=== PATIENT | male | born 1945 | race Caucasian/White ===

== ENCOUNTER → 2017-12-24 | Outpatient (CLI) | payer OTHER, MEDICARE ==
--- NOTE | 2017-12-24 18:44 | EKG REPORT ---
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
== END ==
LOC: OD 14:19
PROVIDERS: ATTEND Nurse Practitioner Family
DX: I10 Essential (primary) hypertension (principal)
CPT/HCPCS: 93005; 93010

== ENCOUNTER → 2018-01-07 | Outpatient (CLI) | payer MEDICARE ==
--- NOTE | 2018-01-07 10:42 | RADIOLOGY REPORT (SQ) ---
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 TECHNIQUE: Static and dynamic grayscale images acquired of the aorta and stored on PACs. Selected co asaf Doppler and spectral images recorded. LIMITATIONS: None. FINDINGS: AORTIC CALIBER MAXIMAL PROXIMAL: 2.1 cm. MID: 1.8 cm. DISTAL: 1.5 cm. ILIAC DIAMETER RIGHT: 1.8 cm. LEFT: 1.2 cm. OTHER: No other significant finding. IMPRESSION: NO ABDOMINAL AORTIC ANEURYSM. COMMENT: Aorta screening examinations categories: Negative - less than 3 cm. TECHNICAL DOCUMENTATION: JOB ID: [id number] [employer]- All Rights Reserved Reading location - IP/workstation name: [email or web address]
== END ==
LOC: RAD 08:25
PROVIDERS: ATTEND Nurse Practitioner Family
DX: Z13.6 Encounter for screening for cardiovascular disorders (principal); F17.210 Nicotine dependence, cigarettes, uncomplicated
CPT/HCPCS: 76706

== ENCOUNTER 2018-01-10 08:30 | Day surgery (SDC) | payer MEDICARE ==
[~2018-01-10 08:30] MED LIST: DIPHENHYDRAMINE HCL 50 MG/ML VIAL ONE; EPINEPHRINE INJ 1 MG/10 ML DISP.SYRIN ONE; FLUMAZENIL INJ 0.5 MG/5 ML VIAL ONE; GLUCAGON,HUMAN RECOMB 1 MG INJ ONE; NALOXONE HCL INJ/PF 0.4 MG/1 ML SDV ONE; ONDANSETRON HCL INJ/PF 4 MG/2 ML SDV ONE
[2018-01-10] MEDS: MIDAZOLAM 2 MG/2 ML INJ ONE ×3 (09:25→09:37)
[2018-01-10] MEDS: FENTANYL CITRATE INJ/PF 100 MCG/2 ML AMPUL ONE ×3 (09:27→09:33)
--- NOTE | 2018-01-10 09:40 | Operative Report ---
Operative Report DATE OF SURGERY: 01/10/18 Operative Report: The risks benefits and alternatives of the procedure explained to the patient in detail and informed consent is obtained.A GIF Olympus video scope was inserted into the patient's mouth and hypopharynx, the esophagus is identified intubated and insufflated ,the scope was then advanced through the esophagus stomach and duodenum, retroflexion maneuver is done, the esophagus stomach and first and second portions of the duodenum examined PREOPERATIVE DIAGNOSIS: Dysphagia POSTOPERATIVE DIAGNOSIS: Schatzki's ring status post dilatation. Hiatal hernia. Gastritis status post biopsy rule out Helicobacter pylori OPERATION: EGD with biopsy. EGD with dilatation SURGEON: AIDA RODRIGUEZ ANESTHESIA: Moderate Sedation - 4 mg of Versed, 75 mcg of fentanyl. Conscious sedation monitoring time 30 minutes. TISSUE REMOVED OR ALTERED: As noted above. COMPLICATIONS: None. ESTIMATED BLOOD LOSS: None. INTRAOPERATIVE FINDINGS: As noted above. PROCEDURE: Patient tolerated the procedure well. No immediate postprocedure complications are noted. Patient discharged in good condition. Discharge date 01/10/2018. Discharge diet: Regular. Discharge activity: Regular. 2-3 week follow-up to discuss findings. Patient is instructed call the office or proceed to the emergency room should there be any further problems or questions. We will await pathology.
[2018-01-10 10:45] VITALS: BP 124/66
== END 2018-01-10 10:55 | disposition home or self-care (01) ==
LOC: END 08:30
PROVIDERS: ATTEND Internal Medicine Gastroenterology
PROC: 0D758ZZ Dilation of Esophagus, Via Natural or Artificial Opening Endoscopic (ICD-10-PCS; 2018-01-10)
PROC: 0DB68ZX Excision of Stomach, Via Natural or Artificial Opening Endoscopic, Diagnostic (ICD-10-PCS; principal; 2018-01-10 09:30)
DX: K29.50 Unspecified chronic gastritis without bleeding (principal); K44.9 Diaphragmatic hernia without obstruction or gangrene; K22.2 Esophageal obstruction; I10 Essential (primary) hypertension; Z79.899 Other long term (current) drug therapy
CPT/HCPCS: 43239; 43249; 88342 ×2; 88305 ×2; J2250; J3010; J0171; J1200; J1610; J2310; J2405; J3490

== ENCOUNTER 2019-07-02 10:09 | Emergency (ER) | payer MEDICARE ==
--- NOTE | 2019-07-02 11:10 | RADIOLOGY REPORT (SQ) ---
EXAM DESCRIPTION: CT HEAD WITHOUT COMPLETED DATE/TIME: 07/02/2019 10:51 am REASON FOR STUDY: bed 9 left sided weakness COMPARISON: None. TECHNIQUE: Axial images acquired through the brain without intravenous contrast. Images reviewed wi th bone, brain and subdural windows. Additional sagittal and coronal reconstructions were generated. Images stored on PACS. All CT scanners at this facility use dose modulation, iterative reconstruction, and/or weight based d osing when appropriate to reduce radiation dose to as low as reasonably achievable (ALARA). [facility]: Dose Right [facility]: CareDose [facility]: Dose Right [facility]: Teradose 4D [facility]: Smart Technologies RADIATION DOSE: CT Rad equipment meets quality standard of care and radiation dose reduction techniq ues were employed. CTDIvol: 53.2 mGy. DLP: 1044 mGy-cm. mGy. LIMITATIONS: None. FINDINGS: VENTRICLES: Normal size and contour. CEREBRUM: Along the right frontal perisylvian region, a 4.6 cm (craniocaudad) by 3.5 cm (AP) by 3 cm (transverse) mass is present with surrounding vasogenic edema. There is effacement of the right sylv angelique fissure and adjacent frontal sulci. Minimal 2 to 3 mm right to left subfalcine shift. No superi mposed acute hemorrhage. Remainder of the brain parenchyma is otherwise unremarkable. CEREBELLUM: No masses. No hemorrhage. No alteration of density. No evidence for acute infarction. EXTRAAXIAL SPACES: No fluid collections. No masses. ORBITS AND GLOBE: No intra- or extraconal masses. Normal contour of globe without masses. CALVARIUM: No fracture. PARANASAL SINUSES: No fluid or mucosal thickening. SOFT TISSUES: No mass or hematoma. OTHER: No other significant finding. IMPRESSION: 4.6 x 3.5 x 3 cm mass in the right frontal brain parenchyma with surrounding vasogenic e estela and mild local mass effect. Minimal if any subfalcine shift. Finding is worrisome for either p rimary brain tumor or metastatic disease. Results called to Dr. Reyes, 1100 hours 07/02/2019 as a critical result EVIDENCE OF ACUTE STROKE: NO. COMMENT: Pertinent findings on the imaging study reported as a CRITICAL RESULT to Dr Reyes at11:01 o n 07/02/2019. Category of Critical Result: Right frontal brain tumor with mild local mass effect Quality ID # [id number]: Final reports with documentation of one or more dose reduction techniques (e.g., Au tomated exposure control, adjustment of the mA and/or kV according to patient size, use of iterative reconstruction technique) TECHNICAL DOCUMENTATION: JOB ID: [id number] [employer]- All Rights Reserved Reading location - IP/workstation name: [email or web address]-
--- NOTE | 2019-07-02 11:12 | ER Document Report ---
ED Medical Screen (RME) - General Chief Complaint: Weakness Stated Complaint: LEFT SIDE BODY WEAKNESS Time Seen by Provider: 07/02/19 11:03 Primary Care Provider: SAIDA VELÁZQUEZ NP [Primary Care Provider] - Follow up as needed Information source: Patient, Relative Notes: Patient presents with 2 to 3-week history of generalized weakness. Patient with a left-sided facial droop this morning and dragging the left leg at home causing disruption of the rugs at home on the floor. Patient states that people commented last night at latter-day that he seemed to have drooping of the left shoulder. hx: Hypertension, GERD I have greeted and performed a rapid initial assessment of this patient. A comprehensive ED assessment and evaluation of the patient, analysis of test results and completion of the medical decision making process will be conducted by additional ED providers. TRAVEL OUTSIDE OF THE [place] IN LAST 30 DAYS: No - Related Data Allergies/Adverse Reactions: No Known Allergies Allergy (Verified 01/10/18 09:01) Past Medical History - Past Medical History Cardiac Medical History: Reports: Hx Hypertension Denies: Hx Coronary Artery Disease, Hx Heart Attack Pulmonary Medical History: Reports: Hx COPD Denies: Hx Asthma, Hx Bronchitis, Hx Pneumonia Neurological Medical History: Denies: Hx Cerebrovascular Accident, Hx Seizures Musculoskeltal Medical History: Denies Hx Arthritis - Immunizations Immunizations up to date: No Hx Diphtheria, Pertussis, Tetanus Vaccination: Yes - out of date Influenza Administration Date for 08/2017 - 01/2018 Season: 12/05/17 Physical Exam - Vital signs Vitals: Temp Pulse Resp BP Pulse Ox 98.2 F 110 H 16 125/70 100 07/02/19 10:16 07/02/19 10:07/02/19 10:07/02/19 10:07/02/19 10:16 - General Notes: Left-sided facial droop - Neurological [place] Coma Scale Eye Opening: Spontaneous [place] Coma Scale Verbal: Oriented Debbie Coma Scale Motor: Obeys Commands Debbie Coma Scale Total: 15 Cranial nerves: Facial palsy Course - Vital Signs Vital signs: Temp Pulse Resp BP Pulse Ox 98.2 F 110 H 16 125/70 100 07/02/19 10:16 07/02/19 10:16 07/02/19 10:16 07/02/19 10:07/02/19 10:16 - Laboratory Laboratory results interpreted by me: 07/02/19 10:59 POC Glucose 133 H Doctor's Discharge - Discharge Referrals: SAIDA VELÁZQUEZ, TRANSMISSION INSPECTOR [Primary Care Provider] - Follow up as needed
[2019-07-02 11:18] LABS: INTERNATIONAL RATION (INR) 1.05
[2019-07-02 11:19] LABS: PARTIAL THROMBOPLASTIN TIME 37.6 SEC (23.5-35.8)
[2019-07-02 11:23] LABS: PROTHROMBIN TIME 13.7 SEC (11.4-15.4)
[2019-07-02 11:30] LABS: ABSOLUTE BASOPHILS # (AUTO) 0.1 10^3/uL (0.0-0.2); ABSOLUTE EOSINOPHILS # (AUTO) 0.1 10^3/uL (0.0-0.6); ABSOLUTE MONOCYTES (AUTO) 0.6 10^3/uL (0.1-1.4); ABSOLUTE NEUT (AUTO) 5.9 10^3/uL (1.7-8.2); BASOPHILS % (AUTO) 0.9 % (0-2); EOSINOPHILS % (AUTO) 1.1 % (0-6); HEMATOCRIT 39.6 % (37.9-51.0); HEMOGLOBIN 13.4 g/dL (13.5-17.0); LYMPHOCYTES % (AUTO) 13.5 % (13-45); MEAN CORPUSCULAR HEMOGLOBIN 30.3 pg (27.0-33.4); MEAN CORPUSCULAR HGB CONC 33.7 g/dL (32.0-36.0); MEAN CORPUSCULAR VOLUME 90 fl (80-97); MONOCYTES % (AUTO) 7.8 % (3-13); PLATELET COUNT 359 10^3/uL (150-450); RED BLOOD COUNT 4.41 10^6/uL (4.35-5.55); RED CELL DISTRIBUTION WIDTH 14.3 % (11.5-14.0); SEGMENTED NEUTROPHILS % (AUTO) 76.7 % (42-78); TOTAL CELLS COUNTED % (AUTO) 100 %; WHITE BLOOD COUNT 7.7 10^3/uL (4.0-10.5)
[2019-07-02 11:50] LABS: ALBUMIN 4.2 g/dL (3.5-5.0); ALKALINE PHOSPHATASE 109 U/L (38-126); ANION GAP 8 (5-19); ASPARTATE AMINO TRANSFERASE 29 U/L (17-59); BILIRUBIN,DIRECT 0.3 mg/dL (0.0-0.4); BILIRUBIN,TOTAL 0.4 mg/dL (0.2-1.3); BLOOD UREA NITROGEN 32 mg/dL (7-20); CALCIUM 9.6 mg/dL (8.4-10.2); CARBON DIOXIDE 28 mmol/L (22-30); CHLORIDE 99 mmol/L (98-107); CREATINE KINASE 72 U/L (55-170); GLUCOSE 145 mg/dL (75-110); POTASSIUM 4.4 mmol/L (3.6-5.0); TOTAL PROTEIN 8.6 g/dL (6.3-8.2)
[2019-07-02 11:51] LABS: CREATINE KINASE MB 2.64 ng/mL (<4.55)
[2019-07-02 11:52] LABS: TROPONIN I < 0.012 ng/mL
[2019-07-02] MEDS ORDERED: DEXAMETHASONE SOD PHOS INJ 10 MG/1 ML VIAL IV ONE (11:56)
--- NOTE | 2019-07-02 12:03 | ER Document Report ---
ED General - General Chief Complaint: Weakness Stated Complaint: LEFT SIDE BODY WEAKNESS Time Seen by Provider: 07/02/19 11:03 Primary Care Provider: SAIDA VELÁZQUEZ NP [Primary Care Provider] - Follow up as needed TRAVEL OUTSIDE OF THE [place] IN LAST 30 DAYS: No - HPI Notes: Progressive left-sided body weakness with left facial droop that started this morning prompting patient to come to the emergency department. 20 pounds of unintentional weight loss over the last 2 months patient is daily smoker - Related Data Allergies/Adverse Reactions: No Known Allergies Allergy (Verified 01/10/18 09:01) Past Medical History - General Information source: Patient, Relative - Social History Smoking Status: Current Every Day Smoker Frequency of alcohol use: None Drug Abuse: None Family History: Reviewed & Not Pertinent Patient has suicidal ideation: No Patient has homicidal ideation: No - Past Medical History Cardiac Medical History: Reports: Hx Hypertension Denies: Hx Coronary Artery Disease, Hx Heart Attack Pulmonary Medical History: Reports: Hx COPD Denies: Hx Asthma, Hx Bronchitis, Hx Pneumonia Neurological Medical History: Denies: Hx Cerebrovascular Accident, Hx Seizures Musculoskeletal Medical History: Denies Hx Arthritis - Immunizations Immunizations up to date: No Hx Diphtheria, Pertussis, Tetanus Vaccination: Yes - out of date Hx Pneumococcal Vaccination: 12/05/17 Review of Systems - Review of Systems Constitutional: No symptoms reported EENT: No symptoms reported Cardiovascular: No symptoms reported Respiratory: No symptoms reported Gastrointestinal: No symptoms reported Genitourinary: No symptoms reported Male Genitourinary: No symptoms reported Musculoskeletal: No symptoms reported Skin: No symptoms reported Hematologic/Lymphatic: No symptoms reported Neurological/Psychological: See HPI Physical Exam - Vital signs Vitals: Temp Pulse Resp BP Pulse Ox 98.2 F 110 H 16 125/70 100 07/02/19 10:16 07/02/19 10:16 07/02/19 10:16 07/02/19 10:16 07/02/19 10:16 - General General appearance: Appears well, Alert - HEENT Head: Normocephalic, Atraumatic Eyes: Normal Cornea: Normal Pupils: PERRL - Respiratory Respiratory status: No respiratory distress Chest status: Nontender Breath sounds: Normal - Cardiovascular Rhythm: Regular Heart sounds: Normal auscultation Murmur: No - Extremities General upper extremity: Normal inspection General lower extremity: Normal inspection - Neurological Notes: Mild left-sided facial droop with weakness on strength exam on left upper and lower extremity compared to right Course - Re-evaluation Re-evalutation: 07/02/19 12:00 Patient appears to have Pancoast tumor with secondary metastasis to the brain. Patient alert oriented overall well-appearing. I did discuss case with Dr. Johnson, he advised to place patient on Decadron as well as Keppra and he will see the patient in his office today. 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 Johnson today at 1pm. Prescriptions: Dexamethasone [Decadron 4 Mg Tablet] 4 mg PO ASDIR PRN #20 tablet PRN Reason: Levetiracetam [Keppra 500 mg Tablet] 500 mg PO Q12 #60 tablet Referrals: RICHAR JOHNSON MD [ACTIVE STAFF] - Follow up as needed
--- NOTE | 2019-07-02 12:04 | RADIOLOGY REPORT (SQ) ---
EXAM DESCRIPTION: CHEST SINGLE VIEW COMPLETED DATE/TIME: 07/02/2019 11:30 am REASON FOR STUDY: L side facial droop COMPARISON: CT brain 07/02/2019 Two-view chest 12/28/2009 EXAM PARAMETERS: NUMBER OF VIEWS: One view. TECHNIQUE: Single frontal radiographic view of the chest acquired. RADIATION DOSE: NA LIMITATIONS: None. FINDINGS: LUNGS AND PLEURA: A right upper lobe mass is present, about 3.5 cm in size. There is righ t paratracheal fullness from adenopathy. This finding is worrisome for primary lung cancer. Lungs are otherwise free of acute infiltrates. Minimal bandlike scarring in the left mid lung, with chronic blunting left lateral costophrenic and posterior costophrenic sulci unchanged from 12/28/2009. MEDIASTINUM AND HILAR STRUCTURES: Fullness right paratracheal region from adenopathy HEART AND VASCULAR STRUCTURES: Heart normal in size. Normal vasculature. BONES: No acute findings. HARDWARE: None in the chest. OTHER: No other significant finding. IMPRESSION: Right upper lobe 3.5 cm mass with right paratracheal adenopathy worrisome for primary jaciel ng cancer. TECHNICAL DOCUMENTATION: JOB ID: [id number] [employer]- All Rights Reserved Reading location - IP/workstation name: [email or web address]
[2019-07-02 12:36] VITALS: BP 125/81
--- NOTE | 2019-07-02 12:41 | EKG REPORT ---
SEVERITY:- ABNORMAL ECG - SINUS TACHYCARDIA LEFT ANTERIOR FASCICULAR BLOCK LOW VOLTAGE IN FRONTAL LEADS BORDERLINE R WAVE PROGRESSION, ANTERIOR LEADS : Confirmed by: Alfonso Wharton MD 02-Jul-2019 12:41:29
== END 2019-07-02 12:54 | disposition home or self-care (01) ==
LOC: ER 10:09
DX: C34.11 Malignant neoplasm of upper lobe, right bronchus or lung (principal); C79.31 Secondary malignant neoplasm of brain; R63.4 Abnormal weight loss; R53.1 Weakness; R29.810 Facial weakness; F17.200 Nicotine dependence, unspecified, uncomplicated; I10 Essential (primary) hypertension
CPT/HCPCS: 36415; 70450; 71045; 80053; 82550; 82553; 82962; 84484; 85025; 85610; 85730; 93005; 93010; 99285

== ENCOUNTER → 2019-07-08 | Outpatient (CLI) | payer MEDICARE, OTHER ==
--- NOTE | 2019-07-08 14:20 | RADIOLOGY REPORT (SQ) ---
EXAM DESCRIPTION: CT CHEST WITH; CT ABD/PELVIS WITH IV ORAL COMPLETED DATE/TIME: 07/08/2019 1:55 pm REASON FOR STUDY: LUNG CA (C34.11), SECONDARY BRAIN CA (C79.31) C34.11 MALIGNANT NEOPLASM OF UPPER LOBE, RIGHT BRONCHUS OR L CONTRAST TYPE AND DOSE: contrast/concentration: Isovue 350.00 mg/ml; Total Contrast Delivered: 65.0 ml; Total Saline Delivered: 65.0 ml RENAL FUNCTION: BUN 32, creatinine 1.32 COMPARISON: None. TECHNIQUE: CT scan of the chest performed using helical scanning technique with dynamic intravenous contrast injection. Images reviewed with lung, soft tissue and bone windows. Reconstructed coronal a nd sagittal MPR images reviewed. All images stored on PACS. All CT scanners at this facility use dose modulation, iterative reconstruction, and/or weight based d osing when appropriate to reduce radiation dose to as low as reasonably achievable (ALARA). [facility]: Dose Right [facility]: CareDose [facility]: Dose Right [facility]: Teradose 4D [facility]: Smart [employer] RADIATION DOSE: CT Rad equipment meets quality standard of care and radiation dose reduction techniq ues were employed. CTDIvol: 4.5 - 4.6 mGy. DLP: 692 mGy-cm. . LIMITATIONS: None. FINDINGS: AXILLAE: No adenopathy. CHEST WALL: Right apical mass which is probably invaded the right posterosuperior chest wall. LUNGS: 7.5 x 4.3 x 6.7 cm mass in the right lung apex. Bilateral emphysematous changes. PLEURA: Calcified pleural plaque consistent with prior asbestosis exposure. THYROID: No masses or significant asymmetry. HILAR AND MEDIASTINAL STRUCTURES: Pathologic mediastinal and right hilar adenopathy. Pretracheal con glomeration of nodes measures 4.4 cm in size. There is a 2.5 cm right hilar node. AORTA AND GREAT VESSELS: Atherosclerotic change. No dissection. PULMONARY ARTERIES: No identified pulmonary emboli. Study not optimized for the pulmonary arteries. HEART: No pericardial effusion. HARDWARE AND LIFELINES: None. BONES: No significant finding. OTHER: No other significant finding. IMPRESSION: Right apical mass with probable chest wall invasion. Fairly extensive mediastinal and r ight hilar adenopathy consistent with metastatic disease. Calcified pleural plaque. Bilateral emphy sematous changes. COMPARISON: None. RADIATION DOSE: CT Rad equipment meets quality standard of care and radiation dose reduction [employer] ues were employed. CTDIvol: 4.5 - 4.6 mGy. DLP: 692 mGy-cm. mGy. TECHNIQUE: CT scan of the abdomen and pelvis performed with intravenous and oral contrast using odalis la nena scanning technique with dynamic intravenous contrast injection. Images reviewed with lung, soft tissue and bone windows. Reconstructed coronal and sagittal MPR images reviewed. Delayed images for evaluation of the urinary system also acquired and evaluated. All images stored on PACS. All CT scanners at this facility use dose modulation, iterative reconstruction, and/or weight based d osing when appropriate to reduce radiation dose to as low as reasonably achievable (ALARA). [facility]: Dose Right [facility]: SureCare [facility]: Dose Right [facility]: Teradose 4D [facility]: [employer] FINDINGS: LIVER: Normal size. No masses. No dilated ducts. SPLEEN: Normal size. No focal lesions. PANCREAS: No masses. No significant calcifications. No adjacent inflammation or peripancreatic flui d collections. Pancreatic duct not dilated. GALLBLADDER: No identified stones by CT criteria. No inflammatory changes to suggest cholecystitis. ADRENAL GLANDS: No significant masses or asymmetry. RIGHT KIDNEY AND URETER: 2.3 cm heterogeneously enhancing solid mass off the anterior mid aspect of t he right kidney. Neoplasm is suspected. No significant calcifications. No hydronephrosis or hydr oureter. LEFT KIDNEY AND URETER: No solid masses. No significant calcifications. No hydronephrosis or hydr oureter. AORTA AND VESSELS: Aorta demonstrates atherosclerotic change. No aneurysmal dilatation. RETROPERITONEUM: There is a 3.2 cm heterogeneous left retroperitoneal masses sits just posterior to t he left kidney consistent with metastasis. LARGE AND SMALL BOWEL: No dilatation. No masses. No wall thickening. APPENDIX: Normal. ABDOMINAL WALL: No hernia or masses. PERITONEAL CAVITY: No free air. No free fluid. No peritoneal implants or masses. PELVIS: No mass or free fluid. Normal bladder. BONES: No significant or acute findings. OTHER: No other significant finding. IMPRESSION: 1. 3.2 cm heterogeneously enhancing left retroperitoneal mass consistent with neoplasm. 2. 2.3 cm solid heterogeneous Ing enhancing mass in the right kidney suspicious for primary renal ce ll carcinoma. Metastatic disease is thought to be less likely. TECHNICAL DOCUMENTATION: JOB ID: [id number] Quality ID # [id number]: Final reports with documentation of one or more dose reduction techniques (e.g., Au tomated exposure control, adjustment of the mA and/or kV according to patient size, use of iterative reconstruction technique) 2010 [employer]- All Rights Reserved Reading location - IP/workstation name: [email or web address]
--- NOTE | 2019-07-08 14:59 | RADIOLOGY REPORT (SQ) ---
EXAM DESCRIPTION: MRI HEAD COMBO COMPLETED DATE/TIME: 07/08/2019 2:30 pm REASON FOR STUDY: LUNG CA (C34.11), SECONDARY BRAIN CA (C79.31) C34.11 MALIGNANT NEOPLASM OF UPPER LOBE, RIGHT BRONCHUS OR L COMPARISON: None. TECHNIQUE: Multiplanar imaging includes noncontrasted T1, T2, FLAIR, diffusion with ADC map and post gadolinium contrast T1 sequences. Images stored on PACS. CONTRAST TYPE AND DOSE: 10 mL Dotarem. RENAL FUNCTION: Not indicated. ACR Type II contrast agent associated with few, if any, unconfounded cases of NSF LIMITATIONS: None. FINDINGS: ANATOMY: No anomalies. Normal vascular flow voids. Pituitary fossa normal. CSF SPACES: Normal in size and contour. No hemorrhage. CEREBRUM: There is a large, 36 mm cavitary lesion in the right frontal/ parietal region with associat ed vasogenic edema. No significant midline shift. There is an 11 mm ring-like lesion in the right o ccipital lobe. There is no acute hemorrhage or infarction. POSTERIOR FOSSA: No signal alteration. No hemorrhage. No edema, masses, or mass effect. Internal annia tory canals, cerebellopontine angles, mastoids normal. No enhancing lesions. No abnormal enhancement post contrast. DIFFUSION IMAGING: Negative for acute or subacute infarction. ORBITS: No masses. Globes normal. PARANASAL SINUSES: No fluid levels. Mucosa normal. OTHER: No other significant finding. IMPRESSION: Brain metastases as described. EVIDENCE OF ACUTE STROKE: NO. TECHNICAL DOCUMENTATION: JOB ID: [id number] [employer]- All Rights Reserved Reading location - IP/workstation name: [email or web address]
== END ==
LOC: RAD 12:49
PROVIDERS: ATTEND Internal Medicine
DX: C34.11 Malignant neoplasm of upper lobe, right bronchus or lung (principal); C79.31 Secondary malignant neoplasm of brain
CPT/HCPCS: 70553; 71260; 74177; A9576

== ENCOUNTER 2019-08-19 08:52 | Outpatient (CLI) | payer MEDICARE ==
[2019-08-19 09:12] VITALS: BP 113/58
[2019-08-19] MEDS ORDERED: PALONOSETRON 0.25 MG/5 ML SDV IV PRN (09:24)
[2019-08-19] MEDS ORDERED: DEXAMETHASONE 10 MG in NS 50 ML IV PRN (09:25)
[2019-08-19] MEDS ORDERED: PEMETREXED DISODIUM IV PRN (09:26)
[2019-08-19] MEDS ORDERED: NORMAL SALINE IV PRN ×2 (09:26→09:27)
[2019-08-19] MEDS ORDERED: CARBOPLATIN IV PRN (09:27)
[2019-08-20] MEDS ORDERED: NORMAL SALINE 250 ML @ KVO IV PRN (05:00)
== END 2019-08-19 11:30 | disposition home or self-care (01) ==
LOC: II 08:52 → 5TH 08:55 → II 11:30
PROVIDERS: ATTEND Internal Medicine
PROC: 3E03305 Introduction of Other Antineoplastic into Peripheral Vein, Percutaneous Approach (ICD-10-PCS; principal; 2019-08-19)
PROC: 3E0333Z Introduction of Anti-inflammatory into Peripheral Vein, Percutaneous Approach (ICD-10-PCS; 2019-08-19)
PROC: 3E033GC Introduction of Other Therapeutic Substance into Peripheral Vein, Percutaneous Approach (ICD-10-PCS; 2019-08-19)
DX: Z51.11 Encounter for antineoplastic chemotherapy (principal); C34.11 Malignant neoplasm of upper lobe, right bronchus or lung
CPT/HCPCS: 96413; 96367; 96375; 96417; J9045; J7050 ×2; J1100; J9305; J2469; 96411

== ENCOUNTER 2019-08-25 12:18 | Inpatient (IN) | payer MEDICARE ==
[2019-08-25] MEDS ORDERED: ADENOSINE INJ/PF 6 MG/2 ML SDV IV ONE ×3 (12:55→13:22)
[2019-08-25] MEDS ORDERED: DILTIAZEM HCL INJ 25 MG/5 ML VIAL ONE (13:05)
[2019-08-25] MEDS ORDERED: DILTIAZEM HCL INJ 25 MG/5 ML VIAL IV ONE (13:22)
[2019-08-25] MEDS ORDERED: NORMAL SALINE 1000 ML 1,000 ML IV PRN ×2 (13:22→15:14)
[2019-08-25 13:43] LABS: TROPONIN I 0.131 ng/mL
[2019-08-25 13:48] LABS: ABSOLUTE LYMPHOCYTES (AUTO) 0.1 10^3/uL (0.5-4.7); ABSOLUTE NEUT (AUTO) 0.5 10^3/uL (1.7-8.2); BASOPHILS % (AUTO) 0.1 % (0-2); EOSINOPHILS % (AUTO) 0.2 % (0-6); HEMATOCRIT 31.9 % (37.9-51.0); HEMOGLOBIN 10.8 g/dL (13.5-17.0); LYMPHOCYTES % (AUTO) 12.7 % (13-45); MEAN CORPUSCULAR HEMOGLOBIN 30.2 pg (27.0-33.4); MEAN CORPUSCULAR HGB CONC 33.8 g/dL (32.0-36.0); MEAN CORPUSCULAR VOLUME 89 fl (80-97); MONOCYTES % (AUTO) 1.1 % (3-13); RED BLOOD COUNT 3.57 10^6/uL (4.35-5.55); SEGMENTED NEUTROPHILS % (AUTO) 85.9 % (42-78); TOTAL CELLS COUNTED % (AUTO) 100 %
[2019-08-25 13:58] LABS: ALBUMIN 2.9 g/dL (3.5-5.0); ALKALINE PHOSPHATASE 72 U/L (38-126); ANION GAP 18 (5-19); ASPARTATE AMINO TRANSFERASE 45 U/L (17-59); BILIRUBIN,DIRECT 0.8 mg/dL (0.0-0.4); BILIRUBIN,TOTAL 1.3 mg/dL (0.2-1.3); BLOOD UREA NITROGEN 99 mg/dL (7-20); CARBON DIOXIDE 23 mmol/L (22-30); CHLORIDE 93 mmol/L (98-107); CREATINE KINASE 214 U/L (55-170); GLUCOSE 261 mg/dL (75-110); TOTAL PROTEIN 6.4 g/dL (6.3-8.2)
[2019-08-25 14:05] LABS: PLATELET COUNT 32 10^3/uL (150-450)
[2019-08-25 14:07] LABS: ANISOCYTOSIS SLIGHT; PLATELET COMMENT DECREASED; TOXIC VACUOLATION PRESENT
[2019-08-25 14:11] LABS: WHITE BLOOD COUNT 0.6 10^3/uL (4.0-10.5)
--- NOTE | 2019-08-25 14:14 | RADIOLOGY REPORT (SQ) ---
EXAM DESCRIPTION: CHEST SINGLE VIEW COMPLETED DATE/TIME: 08/25/2019 1:47 pm REASON FOR STUDY: shortness of breath COMPARISON: 07/02/2019 EXAM PARAMETERS: NUMBER OF VIEWS: One view. TECHNIQUE: Single frontal radiographic view of the chest acquired. RADIATION DOSE: NA LIMITATIONS: None. FINDINGS: LUNGS AND PLEURA: There is marked opacification in the right upper lobe and possibly the m iddle lobe. Right paratracheal mass seen on 07/02/2019 is not well seen on this study. MEDIASTINUM AND HILAR STRUCTURES: No masses. Contour normal. HEART AND VASCULAR STRUCTURES: Heart normal in size. Normal vasculature. BONES: No acute findings. HARDWARE: None in the chest. OTHER: No other significant finding. IMPRESSION: Right upper lobe and middle lobe pneumonia, possibly postobstructive. TECHNICAL DOCUMENTATION: JOB ID: [id number] [employer]- All Rights Reserved Reading location - IP/workstation name: [email or web address]
[2019-08-25] MEDS ORDERED: CEFTRIAXONE INJ 1000 MG VIAL IV ONE ×2 (14:23→18:00)
[2019-08-25] MEDS ORDERED: AZITHROMYCIN INJ 500 MG VIAL IV ONE ×2 (14:23→17:45)
--- NOTE | 2019-08-25 14:30 | ER Document Report ---
ED General - General Chief Complaint: Shortness Of Breath Stated Complaint: WEAKNESS Time Seen by Provider: 08/25/19 13:21 Primary Care Provider: JONATHON FLOWERS PA-C [Primary Care Provider] - Follow up as needed TRAVEL OUTSIDE OF THE [place] IN LAST 30 DAYS: No - HPI Notes: Patient is a 73-year-old male that presents to the emergency department for chief complaint of respiratory distress. HPI provided by who is at bedside. states patient was diagnosed with lung cancer that had metastasized to his brain about a month ago. He has been undergoing chemotherapy and had gamma knife procedures. Patient's states that shortly after chemo he would have improvement for a day or 2 but then would decline again. He has had rapid clinical decline and they have decided to make him a DNR without aggressive resuscitative measures. states yesterday evening he started to have increased fatigue and needed more assistance with ambulating. Today he appeared to be in respiratory distress. Patient is alert and will shake his head to answer questions. He denies any pain. Past Medical History: Lung cancer with brain metastasis Past Surgical History: Reviewed in chart Social History: Reviewed in chart Family History: Reviewed and noncontributory for presenting illness Allergies: Reviewed, see documented allergy list. REVIEW OF SYSTEMS: Unable to obtain because of acuity of condition PHYSICAL EXAMINATION: Vital signs reviewed, nursing noted reviewed. GENERAL: Ill-appearing, alert, moderate respiratory distress HEAD: Atraumatic, normocephalic. EYES: Eyes appear normal, extraocular movements intact, sclera anicteric, conjunctiva are normal. ENT: nares patent, oropharynx clear without exudates. Dry mucous membranes. NECK: Normal range of motion, supple without lymphadenopathy LUNGS: Lung sounds diminished with coarse rhonchi bilaterally. Tachypneic with moderate accessory muscle use HEART: Tachycardic rate and regular rhythm without murmurs ABDOMEN: Soft, nontender. No rebound, guarding, or rigidity. No masses appreciated. EXTREMITIES: Nontender, good range of motion, no pitting or edema. NEUROLOGICAL: No focal neurological deficits. Moves all extremities spontaneously Motor and sensory grossly intact on exam. SKIN: Warm, Dry, normal turgor, no rashes or lesions noted on exposed skin - Related Data Allergies/Adverse Reactions: No Known Allergies Allergy (Verified 01/10/18 09:01) Past Medical History - Social History Smoking Status: Current Every Day Smoker Chew tobacco use (# tins/day): No Frequency of alcohol use: None Family History: Reviewed & Not Pertinent Patient has suicidal ideation: No Patient has homicidal ideation: No - Past Medical History Cardiac Medical History: Reports: Hx Hypertension Denies: Hx Coronary Artery Disease, Hx Heart Attack Pulmonary Medical History: Reports: Hx COPD Denies: Hx Asthma, Hx Bronchitis, Hx Pneumonia Neurological Medical History: Denies: Hx Cerebrovascular Accident, Hx Seizures Musculoskeletal Medical History: Denies Hx Arthritis - Immunizations Immunizations up to date: No Hx Diphtheria, Pertussis, Tetanus Vaccination: Yes - out of date Hx Pneumococcal Vaccination: 12/05/17 Physical Exam - Vital signs Vitals: Resp Pulse Ox 30 H 97 08/25/19 13:35 08/25/19 13:35 Course - Re-evaluation Re-evalutation: 08/25/19 14:43 Vitals reviewed. Nursing notes reviewed. Patient presented to the emergency room with a heart rate of 188 and blood pressure in the high 90s systolic. His initial EKG appeared to be SVT. Attempted multiple vagal maneuvers without change in heart rate. Patient then received it is seen 6 mg with no significant change and 12 mg which did provide a pause long enough to show underlying rhythm of atrial Fib or A. Flutter I did discuss cardioversion with patient and his since he has a borderline blood pressure however given that he is DNR she does not wish for him to undergo this procedure. Patient was started on aggressive IV fluids using pressure bag, he was given a dose of Cardizem which did improve his heart rate and blood pressure remained stable. Patient was then given a second dose of Cardizem which his blood pressure has tolerated as well. His heart rate has improved to the 110s to 130s and clinically he states he feels better. Patient was also hypoxic in the low 80s and nonrebreather was initiated. This kept his O2 at about 92. Given his increased work of breathing I did trial patient on BiPAP for respiratory assistance which he was not comfortable with. BiPAP was removed for patient comfort. I have had lengthy conversations with patient and family regarding goals of care. He does not wish to have aggressive management and would like palliative measures however patient's states his daughter is about 7 hours out by car ride and they do wish for him to remain alive until she was able to be at the hospital. Patient's work-up today shows multisystem organ failure with new renal failure and elevated troponin. He also has a lactate of 3 and is meeting septic shock criteria from a right-sided pneumonia on chest x-ray. Patient has received antibiotics and blood cultures were obtained. Plan to admit for comfort care. Care discussed with Marianna Ballard who accepts admission. Laboratory 08/25/19 08/25/19 08/25/19 12:40 12:40 12:40 WBC Cancelled RBC Cancelled Hgb Cancelled Hct Cancelled MCV Cancelled MCH Cancelled MCHC Cancelled RDW Cancelled Plt Count Cancelled Lymph % (Auto) Cancelled [place] % (Auto) Cancelled Eos % (Auto) Cancelled Baso % (Auto) Cancelled Absolute Neuts (auto) Cancelled Absolute Lymphs (auto) Cancelled Absolute Monos (auto) Cancelled Absolute Eos (auto) Cancelled Absolute Basos (auto) Cancelled Seg Neutrophils % Cancelled Toxic Vacuolation Dohle Bodies Platelet Estimate Cancelled Platelet Comment Anisocytosis Sodium 133.8 L Potassium 4.0 Chloride 93 L Carbon Dioxide 23 Anion Gap 18 BUN 99 H Creatinine 2.09 H Est GFR ( Amer) 38 L Est GFR (MDRD) Non-Af 31 L Glucose 261 H Lactic Acid Calcium 8.0 L Total Bilirubin 1.3 Direct Bilirubin 0.8 H Neonat Total Bilirubin Not Reportable Neonat Direct Bilirubin Not Reportable Neonat Indirect Bili Not Reportable AST 45 ALT 27 Alkaline Phosphatase 72 Creatine Kinase 214 H CK-MB (CK-2) 2.00 Troponin I 0.131 Total Protein 6.4 Albumin 2.9 L Slides for Path Review Cancelled 08/25/19 08/25/19 13:34 13:34 WBC 0.6 L* RBC 3.57 L Hgb 10.8 L Hct 31.9 L MCV 89 MCH 30.2 MCHC 33.8 RDW 15.0 H Plt Count 32 L Lymph % (Auto) 12.7 L [place] % (Auto) 1.1 L Eos % (Auto) 0.2 Baso % (Auto) 0.1 Absolute Neuts (auto) 0.5 L Absolute Lymphs (auto) 0.1 L Absolute Monos (auto) 0.0 L Absolute Eos (auto) 0.0 Absolute Basos (auto) 0.0 Seg Neutrophils % 85.9 H Toxic Vacuolation PRESENT Dohle Bodies PRESENT Platelet Estimate Platelet Comment DECREASED Anisocytosis SLIGHT Sodium Potassium Chloride Carbon Dioxide Anion Gap BUN Creatinine Est GFR ( Amer) Est GFR (MDRD) Non-Af Glucose Lactic Acid 3.3 H Calcium Total Bilirubin Direct Bilirubin Neonat Total Bilirubin Neonat Direct Bilirubin Neonat Indirect Bili AST ALT Alkaline Phosphatase Creatine Kinase CK-MB (CK-2) Troponin I Total Protein Albumin Slides for Path Review Chest X-Ray 08/25/19 13:21 IMPRESSION: Right upper lobe and middle lobe pneumonia, possibly postobstructive. - Vital Signs Vital signs: Temp Pulse Resp BP Pulse Ox 30 H 97 08/25/19 13:35 08/25/19 13:35 - Laboratory Result Diagrams: 08/25/19 13:34 08/25/19 12:40 Laboratory results interpreted by me: 08/25/19 08/25/19 08/25/19 12:40 13:34 13:34 WBC 0.6 L* RBC 3.57 L Hgb 10.8 L Hct 31.9 L RDW 15.0 H Plt Count 32 L Lymph % (Auto) 12.7 L [place] % (Auto) 1.1 L Absolute Neuts (auto) 0.5 L Absolute Lymphs (auto) 0.1 L Absolute Monos (auto) 0.0 L Seg Neutrophils % 85.9 H Sodium 133.8 L Chloride 93 L BUN 99 H Creatinine 2.09 H Est GFR ( Amer) 38 L Est GFR (MDRD) Non-Af 31 L Glucose 261 H Lactic Acid 3.3 H Calcium 8.0 L Direct Bilirubin 0.8 H Creatine Kinase 214 H Albumin 2.9 L - EKG Interpretation by Me Additional EKG results interpreted by me: 08/25/19 14:47 Interpreted by myself 1247: SVT, rate 188, no STEMI 1324: A.Fib with RVR, no STEMI, rate 168 Critical Care Note - Critical Care Note Total time excluding time spent on procedures (mins): 50 Comments: Critical care time 50 exclusive from separate billable procedures for a patient requiring complex medical decision making, and high potential for clinical deterioration. Time spent obtaining history from patient or surrogate, discussions with consultants, development of treatment plan with patient or surrogate, evaluation of patient's response to treatment, examination of patient, ordering and performing treatments and interventions, ordering and review of laboratory studies, re-evaluation of patient's condition, ordering and review of radiographic studies and review of old charts Discharge - Discharge Clinical Impression: Elevated troponin, Septic shock, Lactic acidosis, Hyponatremia, Pancytopenia, Atrial fibrillation with RVR Pneumonia Qualifiers: Pneumonia type: due to unspecified organism Laterality: right Lung location: upper lobe of lung Qualified Code(s): J18.1 - Lobar pneumonia, unspecified organism Renal failure Qualifiers: Renal failure chronicity: acute Acute renal failure type: unspecified Qualified Code(s): N17.9 - Acute kidney failure, unspecified Respiratory failure with hypoxia Qualifiers: Chronicity: acute on chronic Qualified Code(s): J96.21 - Acute and chronic respiratory failure with hypoxia Condition: Critical Disposition: ADMITTED INPATIENT Admitting Provider: Marianna Ballard NP Unit Admitted: Medical Floor Referrals: JONATHON FLOWERS PA-C [Primary Care Provider] - Follow up as needed
[2019-08-25] MEDS ORDERED: NORMAL SALINE 1000 ML 1,000 ML IV ONE (14:32)
[2019-08-25] MEDS ORDERED: GUAIFENESIN SYRP 200 MG/10 ML UDC PO PRN (15:14)
[2019-08-25] MEDS ORDERED: ACETAMINOPHEN 325 MG TABLET PO PRN (15:14)
[2019-08-25] MEDS ORDERED: LEVALBUTEROL HCL NEB 1.25 MG/3 ML AMPUL NEB PRN (15:14)
[2019-08-25] MEDS ORDERED: MORPHINE SULFATE 10 MG/ML INJ IV PRN ×2 (15:19→22:30)
[2019-08-25] MEDS ORDERED: ACETAMINOPHEN 650 MG SUPP.RECT PR PRN (15:20)
[2019-08-25] MEDS ORDERED: PROMETHAZINE HCL INJ 25 MG/1 ML VIAL IV PRN (15:20)
[2019-08-25] MEDS ORDERED: ONDANSETRON HCL INJ/PF 4 MG/2 ML SDV IV PRN (15:20)
[2019-08-25] MEDS ORDERED: DIGOXIN INJ 0.5 MG/2 ML AMPULE IV ONE (15:30)
[2019-08-25] MEDS ORDERED: MORPHINE SULFATE 10 MG/ML INJ IV ONE ×2 (15:30→23:00)
[2019-08-25] MEDS ORDERED: SCOPOLAMINE HYDROBROMIDE 1.5 MG PATCH.TD72 TD SCH (16:00)
[2019-08-25] MEDS ORDERED: DEXTROSE 5%-WATER 500 ML with AMIODARONE HCL 900 MG IV PRN ×2 (16:57)
[2019-08-25] MEDS ORDERED: AMIODARONE HCL 150 MG in DEXTROSE 5%-WATER 100 ML IV ONE (18:00)
[2019-08-25 18:51] LABS: APPEARANCE,URINE SLIGHTLY-CLOUDY; BILIRUBIN,URINE NEGATIVE (NEGATIVE); GLUCOSE, URINE NEGATIVE (NEGATIVE); KETONES,URINE NEGATIVE (NEGATIVE); LEUKOCYTE ESTERASE,URINE NEGATIVE (NEGATIVE); NITRITE,URINE NEGATIVE (NEGATIVE); PROTEIN,URINE NEGATIVE (NEGATIVE); URINE SPECIFIC GRAVITY 1.017
[2019-08-25 18:53] LABS: COLOR,URINE YELLOW
--- NOTE | 2019-08-25 18:54 | PDOC H&P ---
History of Present Illness Admission Date/PCP: 08/25/19 14:39 JONATHON FLOWERS PA-C Patient complains of: shortness of breath History of Present Illness: RADHIKA DONAHUE JR is a 73 year old male with a past medical history significant for lung cancer with brain metastasis, followed by Dr. Peters, hypertension, and tobacco dependence who presented to the emergency department today with a complaint of rapidly worsening respiratory distress per patient's , he has undergone chemotherapy and gamma knife procedures; which were not tolerated well, and so decision has been made to pursue comfort care measures only. Evaluation in the emergency department found SVT with heart rate 209 (minimally responsive to adenosine, diltiazem, and digoxin pushes), Tachypnea (RR 34), hypoxia (89%; not on home O2 dependent), WBC 0.6 with an absolute neutrophil count of 0.5, baseline anemia, acute kidney injury (creatinine 2.09/BUN 99) elevated lactic acid of 3.3, elevated troponin of 0.131, and chest x-ray demonstrating a right upper and middle lobe pneumonia that is likely postobstructive. The patient has been provided IV fluid boluses and supplemental oxygen via BiPAP and/or nonrebreather as patient tolerates, medication pushes as above, and is subsequently referred to the hospitalist service for admission for comfort care. After meeting with the patient's and son at bedside, goals of care are for the patient to receive medication management only to attempt to allow the patient's daughter time to drive from [place] to (on the way; will need approximately 8 hours). After her arrival, discontinue medication interventions and pursue comfort care measures only. Patient is a DNR/DNI; specifically would not want electrical cardioversion if he decompensates further. Past Medical History Cardiac Medical History: Reports: Hypertension Denies: Coronary Artery Disease, Myocardial Infarction Pulmonary Medical History: Reports: Chronic Obstructive Pulmonary Disease (COPD) Denies: Asthma, Bronchitis, Pneumonia Neurological Medical History: Denies: Seizures Endocrine Medical History: Reports: None Renal/ Medical History: Reports: None Malignancy Medical History: Reports: Lung Cancer GI Medical History: Reports: None Musculoskeltal Medical History: Denies: Arthritis Skin Medical History: Reports: None Psychiatric Medical History: Reports: Tobacco Dependency Traumatic Medical History: Reports: None Hematology: Reports: Anemia Infectious Medical History: Reports: None Social History Information Source: Relative Lives with: Spouse/Significant other Smoking Status: Current Every Day Smoker Electronic Cigarette use?: No Frequency of Alcohol Use: None Hx Recreational Drug Use: No Drugs: None Hx Prescription Drug Abuse: No - Advance Directive Resuscitation Status: Do Not Resuscitate Surrogate healthcare decision maker:: The patient's , Mery Donahue. Family History Family History: Reviewed & Not Pertinent Parental Family History Reviewed: No - Not needed Children Family History Reviewed: NA Sibling(s) Family History Reviewed.: NA Medication/Allergy Home Medications: Lisinopril/Hydrochlorothiazide [Lisinopril-Hctz 20-12.5 mg Tab] 1 each PO DAILY 01/08/18 Levetiracetam [Keppra 500 mg Tablet] 500 mg PO Q12 #60 tablet 07/02/19 Dexamethasone [Decadron 4 Mg Tablet] 8 mg PO DAILY 08/25/19 Folic Acid 1 mg PO DAILY 08/25/19 Ondansetron HCl [Zofran 8 mg Tablet] 8 mg PO TIDP PRN 08/25/19 Allergies/Adverse Reactions: No Known Allergies Allergy (Verified 01/10/18 09:01) Review of Systems Constitutional: PRESENT: anorexia, fatigue, weight loss. ABSENT: chills, fever(s), headache(s), weight gain Eyes: ABSENT: visual disturbances Ears: ABSENT: hearing changes Cardiovascular: PRESENT: palpitations. ABSENT: chest pain, dyspnea on exertion, edema, orthropnea Respiratory: PRESENT: dyspnea. ABSENT: cough, hemoptysis Gastrointestinal: ABSENT: abdominal pain, constipation, diarrhea, hematemesis, hematochezia, nausea, vomiting Genitourinary: ABSENT: dysuria, hematuria Musculoskeletal: ABSENT: joint swelling Integumentary: ABSENT: rash, wounds Neurological: PRESENT: confusion, memory loss, weakness. ABSENT: abnormal gait, abnormal speech, dizziness, focal weakness, syncope Psychiatric: ABSENT: anxiety, depression, homidical ideation, suicidal ideation Endocrine: ABSENT: cold intolerance, heat intolerance, polydipsia, polyuria Hematologic/Lymphatic: ABSENT: easy bleeding, easy bruising Physical Exam Vital Signs: Temp Pulse Resp BP Pulse Ox 32 H 93/76 L 89 L 08/25/19 16:06 08/25/19 16:06 08/25/19 17:25 Intake & Output 08/24/19 08/25/19 08/26/19 06:59 06:59 06:59 Intake Total 1000 Balance 1000 Weight 61.2 kg General appearance: PRESENT: no acute distress, cooperative, hard of hearing, thin, well-developed Head exam: PRESENT: atraumatic, normocephalic Eye exam: PRESENT: conjunctiva pink, EOMI, PERRLA. ABSENT: scleral icterus Mouth exam: PRESENT: dry mucosa, tongue midline Respiratory exam: PRESENT: accessory muscle use, rhonchi, symmetrical, tachypnea, unlabored, other - NRB. ABSENT: rales, wheezes Cardiovascular exam: PRESENT: irregular rhythm, tachycardia - HR 130-200 Vascular exam: PRESENT: pallor Rectal exam: PRESENT: deferred Extremities exam: PRESENT: full ROM. ABSENT: calf tenderness, clubbing, pedal edema Neurological exam: PRESENT: alert, awake, oriented to person, oriented to place, oriented to situation, CN II-XII grossly intact, other - Lethargic. ABSENT: oriented to time, motor sensory deficit Psychiatric exam: PRESENT: appropriate affect, normal mood Skin exam: PRESENT: dry, intact, warm. ABSENT: cyanosis, rash Results Laboratory Results: 08/25/19 13:34 08/25/19 12:40 08/25/19 08/25/19 08/25/19 12:40 12:40 13:34 WBC Cancelled 0.6 L* RBC Cancelled 3.57 L Hgb Cancelled 10.8 L Hct Cancelled 31.9 L MCV Cancelled 89 MCH Cancelled 30.2 MCHC Cancelled 33.8 RDW Cancelled 15.0 H Plt Count Cancelled 32 L Seg Neutrophils % Cancelled 85.9 H Sodium 133.8 L Potassium 4.0 Chloride 93 L Carbon Dioxide 23 Anion Gap 18 BUN 99 H Creatinine 2.09 H Est GFR ( Amer) 38 L Glucose 261 H Lactic Acid Calcium 8.0 L Total Bilirubin 1.3 AST 45 Alkaline Phosphatase 72 Total Protein 6.4 Albumin 2.9 L 08/25/19 13:34 WBC RBC Hgb Hct MCV MCH MCHC RDW Plt Count Seg Neutrophils % Sodium Potassium Chloride Carbon Dioxide Anion Gap BUN Creatinine Est GFR ( Amer) Glucose Lactic Acid 3.3 H Calcium Total Bilirubin AST Alkaline Phosphatase Total Protein Albumin 08/25/19 08/25/19 12:40 12:40 Creatine Kinase 214 H CK-MB (CK-2) 2.00 Troponin I 0.131 Impressions: Chest X-Ray 08/25/19 13:21 IMPRESSION: Right upper lobe and middle lobe pneumonia, possibly postobstructive. Assessment and Plan - Diagnosis (1) ONEIDA (acute kidney injury) Is this a current diagnosis for this admission?: Yes Plan: Likely prerenal secondary to poor cardiac output (SVT with heart rate in the 200s) and possibly poor p.o. intake over the last few days. Creatinine 2.09/BUN 99 with baseline of 1.12/30 Has received 3 L IV normal saline by ED provider. No history of CHF; we will continue gentle IV fluids. Management of SVT as below. (2) Atrial fibrillation with RVR Is this a current diagnosis for this admission?: Yes Plan: ED provider administered multiple doses of adenosine with improvement heart rate to the low 20s; at that time it appears the patient was in a flutter RVR. He did not respond to IV diltiazem or digoxin pushes. Blood pressures are now soft with systolic in the low 90s. We will provide IV amiodarone bolus and drip. Verified with patient and family; plan is to discontinue medication in the morning following daughter's arrival late this evening. He is admitted to [facility] on continuous cardiac telemetry while on amiodarone drip. (3) Lung cancer metastatic to brain Is this a current diagnosis for this admission?: Yes Plan: Patient's and adult son requesting to receive supportive care to allow time for patient's daughter to be present; driving from [place]. Following her arrival, request that we transition to comfort care measures only. They would like to see Dr. Peters he is available tomorrow; will place consult in the morning. Tylenol as needed for fever. Scopolamine patch. IV Ativan as needed. IV analgesics analgesics and antiemetics as needed. IV Decadron. (4) Elevated troponin Is this a current diagnosis for this admission?: Yes Plan: Likely demand mismatch ischemia. Management of A. fib/RVR as above. No further evaluation indicated as plans are to transition to comfort care measures in the morning. (5) Pancytopenia Is this a current diagnosis for this admission?: Yes Plan: Multifactorial secondary to recent chemotherapy and metastatic disease. No indications for further evaluation or management as plan is to transition to [facility] in the morning. (6) Pneumonia Qualifiers: Pneumonia type: due to unspecified organism Laterality: right Lung location: upper lobe of lung Qualified Code(s): J18.1 - Lobar pneumonia, unspecified organism Is this a current diagnosis for this admission?: Yes Plan: RUL/RML PNA; likely post-obstructive. Received IV azithromycin and Rocephin by ED provider. We will continue supplemental oxygen and BiPAP as needed to maintain saturations. Scheduled and as needed nebulizer treatments. PRN Robitussin. Again, plan is to transition to [facility] in the morning once family members have arrived overnight. - Time Time Spent with patient: 35 or more minutes Medications reviewed and adjusted accordingly: Yes Anticipated discharge: Other Within: within 48 hours
[2019-08-25] MEDS: LORAZEPAM INJ 2 MG/1 ML VIAL IV PRN (19:50)
[2019-08-25] MEDS: IPRATROPIUM/ALBUTEROL 0.5-2.5 MG/3 ML AMPUL NEB SCH (20:53)
[2019-08-25] MEDS ORDERED: MORPHINE SULFATE 10 MG/ML INJ ONE (22:00)
[2019-08-25] MEDS: DEXAMETHASONE SOD PHOS INJ 10 MG/1 ML VIAL IV SCH (22:39)
--- NOTE | 2019-08-25 23:49 | EKG REPORT ---
SEVERITY:- ABNORMAL ECG - SUPRAVENTRICULAR TACHYCARDIA MOST LIKELY ATRIAL FLUTTER WITH RVR LAD, CONSIDER LAFB OR INFERIOR INFARCT NONSPECIFIC T ABNORMALITIES, INFERIOR LEADS : Confirmed by: Farzaneh Blackwood MD 25-Aug-2019 23:48:32
[2019-08-26] MEDS: LORAZEPAM INJ 2 MG/1 ML VIAL IV PRN (00:28)
[2019-08-26] MEDS: MORPHINE SULFATE 10 MG/ML INJ IV PRN ×3 (00:28→08:15)
[2019-08-26 01:16] VITALS: BP 78/33
[2019-08-26] MEDS: IPRATROPIUM/ALBUTEROL 0.5-2.5 MG/3 ML AMPUL NEB SCH ×2 (03:56→08:34)
[2019-08-26] MEDS: DEXAMETHASONE SOD PHOS INJ 10 MG/1 ML VIAL IV SCH (06:09)
[2019-08-26] MEDS ORDERED: ATROPINE SULFATE 1% OPH SOLN 5 ML BOTTLE SL PRN (08:11)
[2019-08-26 09:39] LABS: PATH REVIEW PATHOLOGIST REVIEWED
--- NOTE | 2019-08-26 18:02 | Death Summary ---
Summary Date : 08/26/19 Time of :: 11:08 Autopsy: No Resuscitation Status: Comfort Measures Only Primary Care Provider: Leigha Consulting Provider: Lorraine - Final Diagnosis (1) ONEIDA (acute kidney injury) Is this a current diagnosis for this admission?: Yes (2) Atrial fibrillation with RVR Is this a current diagnosis for this admission?: Yes (3) Lung cancer metastatic to brain Is this a current diagnosis for this admission?: Yes (4) Elevated troponin Is this a current diagnosis for this admission?: Yes (5) Pancytopenia Is this a current diagnosis for this admission?: Yes (6) Pneumonia Is this a current diagnosis for this admission?: Yes (7) Acute respiratory failure with hypoxia Is this a current diagnosis for this admission?: Yes Hospital Course:: The patient presented to the emergency department with complaint of 2 days of rapidly worsening dyspnea. He was found to have a right upper and middle lobe, likely postobstructive, pneumonia and acute kidney injury. He was also found to be in SVT with a heart rate in the 200s minimally responsive to medical i nterventions. Attempts were made to correct arrhythmia utilizing adenosine and Cardizem pushes by the ED provider followed by digoxin push without effect. Discussion had with family members; request medical interventions only with a goal of providing enough time for additional family members to arrive from out of town. Therefore, patient was placed on amiodarone drip as his blood pressures were low and he did not feel that he would tolerate diltiazem drip for rate control. The patient's family members arrived late overnight and the adult ministries director was contacted; at that time, the amiodarone drip was discontinued and he was transitioned to comfort care measures only. The patient expectantly at 1108 this morning as a result of respiratory failure related to postobstructive pneumonia, complicated by SVT and metastatic lung cancer.
== END 2019-08-26 13:30 | disposition left against medical advice (07) | DRG 193 ==
LOC: ER 12:18 → EH 14:39 → 3W 18:55
PROVIDERS: ADMIT Internal Medicine; ATTEND Internal Medicine
PROC: 5A09457 Assistance with Respiratory Ventilation, 24-96 Consecutive Hours, Continuous Positive Airway Pressure (ICD-10-PCS; principal; 2019-08-25)
DX: J18.1 Lobar pneumonia, unspecified organism (principal); J96.01 Acute respiratory failure with hypoxia; C34.90 Malignant neoplasm of unspecified part of unspecified bronchus or lung; C79.31 Secondary malignant neoplasm of brain; N17.9 Acute kidney failure, unspecified; I47.1 Supraventricular tachycardia; D61.818 Other pancytopenia; J44.0 Chronic obstructive pulmonary disease with (acute) lower respiratory infection; Z51.5 Encounter for palliative care; I48.91 Unspecified atrial fibrillation; I10 Essential (primary) hypertension; J44.9 Chronic obstructive pulmonary disease, unspecified; F17.200 Nicotine dependence, unspecified, uncomplicated; Z66 Do not resuscitate; Z92.21 Personal history of antineoplastic chemotherapy; Z92.3 Personal history of irradiation
CPT/HCPCS: 36415; 71045; 80053; 81001; 82550; 82553; 83605; 84484; 85025; 87040; 93005; 93010; 94660; 96361; 96374; 96375; 99291; J0153; J0282; J1160; J2060; J2270; J3490; J7030; J7060